=== PATIENT | female | born 2005 | race Caucasian/White ===

== ENCOUNTER 2023-12-07 19:53 | Emergency (ER) | payer OTHER ==
[2023-12-07 19:59] VITALS: BP 110/73; PULSE 82; RESP 18; TEMP 97.9; BMI 23.4
[2023-12-07 21:38] LABS: URINE APPEARANCE CLEAR; URINE BILIRUBIN NEGATIVE (NEGATIVE); URINE COLOR YELLOW; URINE GLUCOSE (UA) NEGATIVE (NEGATIVE); URINE KETONE NEGATIVE (NEGATIVE); URINE LEUK ESTERASE NEGATIVE (NEGATIVE); URINE NITRITE NEGATIVE (NEGATIVE); URINE PROTEIN NEGATIVE (NEGATIVE); URINE UROBILINOGEN 0.2 mg/dL (0.2-1.0)
== END 2023-12-07 23:12 | disposition home or self-care (01) ==
LOC: JER 19:53
DX: O26.892 Other specified pregnancy related conditions, second trimester (principal); R10.30 Lower abdominal pain, unspecified; Z3A.14 14 weeks gestation of pregnancy; O99.891 Other specified diseases and conditions complicating pregnancy; R35.0 Frequency of micturition; R39.15 Urgency of urination; O23.41 Unspecified infection of urinary tract in pregnancy, first trimester
CPT/HCPCS: 81003; 87086; 99283-25

== ENCOUNTER 2024-02-09 11:08 | Inpatient (IN) | payer OTHER ==
[2024-02-09] MEDS: LACTATED RINGERS SOLUTION 1,000 ML IV SCH ×3 (12:15→21:00)
[2024-02-09 12:44] LABS: EPI CELLS >36 /uL (0-25.1); HYALINE CASTS 1 /uL (0-3.1); PH,URINE 6.5 (5.0-8.0); URINE APPEARANCE CLOUDY; URINE BACTERIA >9,000 /uL (0-1359); URINE BILIRUBIN NEGATIVE (NEGATIVE); URINE COLOR YELLOW; URINE GLUCOSE (UA) NEGATIVE (NEGATIVE); URINE KETONE NEGATIVE (NEGATIVE); URINE LEUK ESTERASE 2+ (NEGATIVE); URINE NITRITE NEGATIVE (NEGATIVE); URINE PROTEIN NEGATIVE (NEGATIVE); URINE RBC 12 /uL (0-23.9); URINE UROBILINOGEN 0.2 mg/dL (0.2-1.0); URINE WBC 93 /uL (0-25.8)
[2024-02-09] MEDS: LACTATED RINGERS SOLUTION 500 ML IV SCH (13:35)
[2024-02-09] MEDS: CEFTRIAXONE 1 GM in DEXTROSE 5%-WATER - 50 ML IVPB ONE (15:00)
[2024-02-09 17:57] VITALS: BMI 29.2
[2024-02-09 18:37] LABS: BASO % 0.2 % (0-2.0); EOS % 0.9 % (0-4.5); HEMATOCRIT 32.3 % (32.4-45.2); HEMOGLOBIN 11.1 GM/dL (10.7-15.3); LYMPH % 13.4 % (8-40); MCH 30.9 pg (25.7-33.7); MCHC 34.4 g/dl (32.0-36.0); MEAN PLT VOLUME 8.9 fl (7.5-11.1); MONO % 13.7 % (3.8-10.2); NEUT % 71.8 % (42.8-82.8); PLATELET COUNT 232 10^3/uL (134-434); RBC 3.59 M/mm3 (3.60-5.2); RDW 12.7 % (11.6-15.6)
[2024-02-09 18:43] LABS: INR 0.96 (0.83-1.09); PROTHROMBIN TIME (PATIENT) 11.1 SEC (9.7-13.0)
[2024-02-09 18:46] LABS: ACTIVATED PTT 27.3 SECONDS (25.2-36.5)
[2024-02-09 19:13] LABS: CALCIUM 8.9 mg/dL (8.5-10.1)
[2024-02-09 19:14] LABS: ALBUMIN 2.4 g/dl (3.4-5.0); BLOOD UREA NITROGEN 7.8 mg/dL (7-18)
[2024-02-09 19:17] LABS: CREATININE 0.5 mg/dL (0.55-1.3)
[2024-02-09 19:19] LABS: BILIRUBIN,TOTAL 0.2 mg/dL (0.2-1); TOT PROT 5.9 g/dl (6.4-8.2)
[2024-02-09] MEDS ORDERED: BETAMET ACET/BETAMET NA PH 30 MG/5 ML VIAL ONE (20:39)
[2024-02-09] MEDS: BETAMET ACET/BETAMET NA PH 30 MG/5 ML VIAL IM SCH (20:45)
[2024-02-09] MEDS: INDOMETHACIN 50 MG CAPSULE PO ONE ×2 (21:49→23:20)
[2024-02-10] MEDS: INDOMETHACIN 25 MG CAPSULE PO SCH (03:31)
[2024-02-10] MEDS: CEFTRIAXONE 1 GM in DEXTROSE 5%-WATER - 50 ML IVPB SCH (15:35)
[2024-02-11 12:18] VITALS: BP 122/61; PULSE 100; RESP 17; TEMP 98.1
== END 2024-02-11 16:25 | disposition home or self-care (01) | DRG 563 ==
LOC: JDEL 11:08 → JLDR 17:40
PROVIDERS: ADMIT Obstetrics & Gynecology; ATTEND Obstetrics & Gynecology
DX: O60.02 Preterm labor without delivery, second trimester (principal); O23.02 Infections of kidney in pregnancy, second trimester; O30.002 Twin pregnancy, unspecified number of placenta and unspecified number of amniotic sacs, second trimester; Z3A.25 25 weeks gestation of pregnancy
CPT/HCPCS: 36415; 76775-TC; 76810-TC; 76817-TC; 80053; 81003; 85025; 85610; 85730; 86850; 86900; 86901; 87086; 87186; 96372

== ENCOUNTER 2024-03-07 02:40 | Inpatient (IN) | payer OTHER ==
[2024-03-07] MEDS ORDERED: BETAMET ACET/BETAMET NA PH 30 MG/5 ML VIAL ONE (03:25)
[2024-03-07] MEDS ORDERED: AMPICILLIN SODIUM 2 GM VIAL ONE (03:26)
[2024-03-07] MEDS ORDERED: MAGNESIUM IVPB ONE (03:26)
[2024-03-07] MEDS ORDERED: MAGNESIUM 4GM/H20 - 4 GM/100 ML IVPB IVPB SCH (03:30)
[2024-03-07] MEDS: BETAMET ACET/BETAMET NA PH 30 MG/5 ML VIAL IM ONE (03:45)
[2024-03-07] MEDS ORDERED: AZITHROMYCIN IVPB 500 MG/250 ML BAG IVPB ONE (03:52)
[2024-03-07] MEDS: ELECTROLYTE-148 SOLN 1,000 ML IV SCH (03:55)
[2024-03-07] MEDS: AMPICILLIN - 2 GM in SODIUM CHLORIDE 100 ML IVPB ONE (04:00)
[2024-03-07 04:12] LABS: BASO % 0.3 % (0-2.0); EOS % 1.7 % (0-4.5); HEMATOCRIT 39.4 % (32.4-45.2); HEMOGLOBIN 13.1 GM/dL (10.7-15.3); LYMPH % 17.7 % (8-40); MCH 30.4 pg (25.7-33.7); MCHC 33.4 g/dl (32.0-36.0); MEAN PLT VOLUME 9.3 fl (7.5-11.1); MONO % 12.8 % (3.8-10.2); NEUT % 67.5 % (42.8-82.8); PLATELET COUNT 186 10^3/uL (134-434); RBC 4.32 M/mm3 (3.60-5.2); RDW 14.4 % (11.6-15.6); WHITE BLOOD COUNT 11.1 K/mm3 (4.0-10.0)
[2024-03-07] MEDS ORDERED: MAGNESIUM SULF 50% (8.12 MEQ/2 ML-1 GM VIAL) IVPB ONE (04:15)
[2024-03-07 04:23] LABS: INR 0.9 (0.83-1.09); PROTHROMBIN TIME (PATIENT) 10.4 SEC (9.7-13.0)
[2024-03-07 04:26] LABS: ACTIVATED PTT 30.2 SECONDS (25.2-36.5)
[2024-03-07] MEDS: AZITHROMYCIN IVPB 500 MG/250 ML BAG IVPB SCH (04:30)
[2024-03-07 04:31] LABS: POTASSIUM 3.9 mmol/L (3.5-5.1)
[2024-03-07 04:33] LABS: BLOOD UREA NITROGEN 9.7 mg/dL (7-18); CALCIUM 9.6 mg/dL (8.5-10.1)
[2024-03-07 04:37] LABS: CREATININE 0.4 mg/dL (0.55-1.3)
[2024-03-07 04:52] LABS: EPI CELLS 26 /uL (0-25.1); HYALINE CASTS 1 /uL (0-3.1); PH,URINE 6.5 (5.0-8.0); URINE APPEARANCE CLEAR; URINE BACTERIA 11 /uL (0-1359); URINE BILIRUBIN NEGATIVE (NEGATIVE); URINE COLOR YELLOW; URINE GLUCOSE (UA) NEGATIVE (NEGATIVE); URINE KETONE NEGATIVE (NEGATIVE); URINE LEUK ESTERASE NEGATIVE (NEGATIVE); URINE NITRITE NEGATIVE (NEGATIVE); URINE PROTEIN NEGATIVE (NEGATIVE); URINE RBC 20 /uL (0-23.9); URINE UROBILINOGEN 0.2 mg/dL (0.2-1.0); URINE WBC 3 /uL (0-25.8)
[2024-03-07] MEDS ORDERED: MAGNESIUM SULFATE 20GM/500ML - 20 GM/500 ML INFUS.BAG ONE (04:56)
[2024-03-07] MEDS: MAGNESIUM SULFATE IN WATER 2 GM/50 ML IVPB IVPB ONE (05:00)
[2024-03-07 05:33] LABS: HIV INTERPRETATION NEGATIVE (NEGATIVE)
[2024-03-07 05:37] VITALS: BP 117/80; PULSE 81; RESP 20; TEMP 98.2; BMI 30.2
[2024-03-07 09:52] LABS: POC NITRAZINE NEG
== END 2024-03-07 05:26 | disposition short-term general hospital (02) | DRG 566 ==
LOC: JDEL 02:40 → JLDR 03:25
PROVIDERS: ADMIT Specialist; ATTEND Specialist
DX: O26.853 Spotting complicating pregnancy, third trimester (principal); O30.033 Twin pregnancy, monochorionic/diamniotic, third trimester; Z3A.29 29 weeks gestation of pregnancy
CPT/HCPCS: 36415; 80048; 81003; 83986-QW; 85025; 85610; 85730; 86780; 86850; 86900; 86901; 87086; 87389; 87635; 96372